=== PATIENT | female | born 1990 | race African-American/Black ===

== ENCOUNTER 2016-06-10 16:04 | Emergency (ER) | payer OTHER, MEDICAID | END 2016-06-10 18:02 | disposition left against medical advice (07) | LOC: UCEAST 16:04 | DX: H92.09 Otalgia, unspecified ear (principal); J34.89 Other specified disorders of nose and nasal sinuses; Z53.21 Procedure and treatment not carried out due to patient leaving prior to being seen by health care provider ==

== ENCOUNTER 2020-12-31 06:07 | Inpatient (IN) ==
[~2020-12-31 06:07] MED LIST: Buffered Lidocaine 1% SYRIN 1 ml INTRADERM ONE; Lactated Ringers 1000 ml BAG 1,000 ML IV SCH
[2020-12-31] MEDS ORDERED: Morphine PF AMP (0.5MG/ML) 5 MG/10 ML AMP ONE (07:39)
[2020-12-31] MEDS ORDERED: fentaNYL 100 mcg/2 ml 50 MCG/ML VIAL ONE (07:40)
[2020-12-31 07:52] LABS: Urine Benzodiazepine Screen None Detected (None Detect); Urine Opiates Screen None Detected (None Detect)
[2020-12-31] MEDS ORDERED: ceFOXitin 2 GM PREMIX 50 ML IVPB ONE (08:00)
[2020-12-31] MEDS ORDERED: Oxytocin 10 UNITS/ML 1 ML VIAL ONE (08:13)
[2020-12-31] MEDS ORDERED: Ondansetron 4 mg VIAL 2 MG/ML 2 ml VIAL IV PRN (08:21)
[2020-12-31] MEDS ORDERED: Naloxone 0.4 mg VIAL 0.4 mg/ml 1 ml VIAL IV PRN (08:21)
[2020-12-31] MEDS ORDERED: Phenylephrine 40 mcg/mL 10mL (400mcg) SYRINGE ONE (08:46)
[2020-12-31] MEDS ORDERED: Witch Hazel PAD JAR TOPICAL PRN (09:32)
[2020-12-31 09:58] LABS: Urine Appearance Clear; Urine Bilirubin Negative (Negative); Urine Blood Negative (Negative); Urine Color Straw; Urine Glucose Negative (Negative); Urine Ketones Negative (Negative); Urine Nitrite Negative (Negative); Urine Protein Negative (Negative); Urine Specific Gravity 1.004 (1.002-1.030); Urine Urobilinogen Negative (Negative)
[2020-12-31] MEDS ORDERED: Lactated Ringers 1000 ml BAG 1,000 ML IV SCH (10:00)
[2020-12-31] MEDS: diPHENhydraMINE IV 50 MG/ML 1 ml VIAL (BENADRYL) IV PRN ×2 (13:53→19:56)
[2020-12-31] MEDS ORDERED: Naloxone 4 mg VIAL (10 ml) 2 MG in NS 0.9% 250 ml 250 ML IV PRN (23:58)
[2020-12-31] MEDS ORDERED: diPHENhydraMINE IV 50 MG/ML 1 ml VIAL (BENADRYL) IV ONE (23:59)
[2021-01-01] MEDS ORDERED: Naloxone 4 mg VIAL (10 ml) 2 MG in NS 0.9% 250 ml 250 ML IV PRN
[2021-01-01 07:24] LABS: ABS Eosinophils 0.1 10^3/ul (0-0.6); ABS Lymphocytes 1.4 10^3/ul (1.0-4.8); ABS Neutrophils 7.6 10^3/ul (1.5-7.7); Eosinophil % 0.6 %; Hematocrit 34 % (35-47); Hemoglobin 11.4 g/dL (12.0-16.0); Lymphocyte % 13.7 %; Mean Corpuscular HGB Conc 34 g/dL (31-36); Mean Corpuscular Hemoglobin 29 pg (27-31); Mean Corpuscular Volume 85 fL (80-97); Mean Platelet Volume 8.2 fL (7.4-10.4); Platelet Count 184 10^3/uL (150-450); Red Blood Count 3.96 10^6 /uL (3.70-4.87); Red Cell Distribution Width 15 % (10-15); White Blood Count 10.1 10^3/uL (3.5-10.8)
[2021-01-02 07:31] VITALS: BP 101/62
== END 2021-01-02 13:50 | disposition home or self-care (01) | DRG 540 ==
LOC: MCHOB 06:07
PROVIDERS: ADMIT Obstetrics & Gynecology; ATTEND Obstetrics & Gynecology